=== PATIENT | male | born 1965 | race Hispanic/Latino ===

== ENCOUNTER → 2024-12-29 | Outpatient (CLI) | payer BC, OTHER ==
--- NOTE | 2024-12-30 06:31 | HMCIMG ---
EXAM: CR Chest, 2 View. CLINICAL HISTORY: COUGH COMPARISON: None provided. FINDINGS: LUNGS: The lungs show no infiltrate or other acute finding. PLEURAL SPACES: No pleural effusion or pneumothorax. MEDIASTINUM: Cardiac size and mediastinal contours within normal limits. BONES: No aggressive appearing osseous lesion seen. IMPRESSION: No acute cardiopulmonary pathology is evident. /[place]
== END | disposition home or self-care (01) ==
LOC: RAH 13:56
PROVIDERS: ATTEND Internal Medicine
DX: R05.9 Cough, unspecified (principal)
CPT/HCPCS: 71046